=== PATIENT | female | born 1980 | race Caucasian/White ===

== ENCOUNTER 2022-01-24 00:17 | Emergency (ER) | payer MEDICARE, OTHER ==
[~2022-01-24] VITALS: Ht 160 cm; Wt 77.1 kg
[2022-01-24] MEDS ORDERED: ONDANSETRON ODT8 MG PO (02:42)
== END 2022-01-24 03:09 | disposition home or self-care (01) ==
LOC: ED 00:17
DX: K52.9 Noninfective gastroenteritis and colitis, unspecified (principal); Z88.0 Allergy status to penicillin; Z88.2 Allergy status to sulfonamides; Z91.018 Allergy to other foods
CPT/HCPCS: 36415; 74177; 80053; 81001; 83690; 85025; 99284-25; A9270; J2405; J7030; Q9967